=== PATIENT | female | born 1985 | race Caucasian/White ===

== ENCOUNTER 2017-11-05 18:39 | Emergency (ER) | payer MEDICAID, SELFPAY | END 2017-11-05 20:03 | disposition home or self-care (01) | LOC: ERS 18:39 | DX: H10.9 Unspecified conjunctivitis (principal); F41.9 Anxiety disorder, unspecified; Z79.899 Other long term (current) drug therapy | CPT/HCPCS: 99283 ==

== ENCOUNTER 2017-11-09 09:57 | Outpatient (CLI) | payer MEDICAID | END 2017-11-09 09:58 | disposition home or self-care (01) | LOC: BICMAMMO 09:57 | PROVIDERS: ATTEND Physician Assistant | DX: Z12.31 Encounter for screening mammogram for malignant neoplasm of breast (principal); N63.20 Unspecified lump in the left breast, unspecified quadrant | CPT/HCPCS: 77066; G0279 ==

== ENCOUNTER 2018-07-17 15:57 | Emergency (ER) | payer MEDICAID, SELFPAY | END 2018-07-17 16:58 | disposition home or self-care (01) | LOC: ERS 15:57 | DX: J06.9 Acute upper respiratory infection, unspecified (principal); H65.92 Unspecified nonsuppurative otitis media, left ear; F41.9 Anxiety disorder, unspecified; F32.9 Major depressive disorder, single episode, unspecified | CPT/HCPCS: 99283 ==

== ENCOUNTER 2019-02-07 20:50 | Emergency (ER) | payer SELFPAY ==
[2019-02-07 21:22] LABS: Bilirubin Negative (Negative); Blood, Urine 2+ (Negative); Clarity Turbid (Clear); Glucose, Urine (Dipstick) Normal (Negative); Leukocyte 250 Leu/uL (Negative); Nitrite Negative (Negative); Protein, Urine (Dipstick) 20 mg/dL (Neg-Trace); RBC/HPF 0-3 HPF (0-3); Urobilinogen Normal mg/dL (Less than 2)
[2019-02-07 21:23] LABS: Bacteria/HPF 1+ HPF (None Seen)
[2019-02-07] MEDS ORDERED: Ketorolac Tromethamine 30 MG/ML VIAL ONE (21:49)
== END 2019-02-07 22:00 | disposition home or self-care (01) ==
LOC: ERS 20:50
DX: N39.0 Urinary tract infection, site not specified (principal); M54.5 Low back pain; F41.9 Anxiety disorder, unspecified; F32.9 Major depressive disorder, single episode, unspecified; Z79.899 Other long term (current) drug therapy
CPT/HCPCS: 81003; 81015; 87086; 96372; 99283; J1885

== ENCOUNTER 2019-06-11 14:04 | Emergency (ER) | payer SELFPAY ==
--- NOTE | 2019-06-17 06:31 | PQF ---
[facility] POST DISCHARGE CLINICAL DOCUMENTATION IMPROVEMENT CLARIFICATION FORM l Todays Date: 06/15/2019 l Patients Name Lacy Marques l l Admit Date 06/11/2019 l Disch Date 06/11/2019 Padder Cushion Name Fiormarley Fern Email: [email or web address] Cell: [phone] To be completed by Padder Cushion: Present Clinical Indicators - Signs / Symptoms Results and Location in Medical Record [ ] Documentation of: [ ] [ ] Documentation of: [ ] [ ] Documentation of: [ ] [ ] Documentation of: [ ] [ ] Risks [ ] [ ] [ ] Treatment [x] Bronchitis Query for specificity of acute or chronic Bronchitis [ ] [ ] To be completed by Physician: Dr. Emma DO, Chance The documentation in this patients record requires clarification to ensure coding compliance and accuracy. Check the appropriate box and include in your discharge summary. [ ] [ ] [ ] [ ] Please check this box if this does not apply to this patient [ ] Unable to determine [ ] Other diagnosis: Review the following information and exercise your independent professional judgment in responding to the clarification. Based upon the clinical findings, risk factors, and treatment, please clarify if you are treating one of the above probable or suspected diagnoses. Physician Signature: Date Time MTDD
== END 2019-06-11 16:28 | disposition home or self-care (01) ==
LOC: ERS 14:04
DX: J40 Bronchitis, not specified as acute or chronic (principal); F41.9 Anxiety disorder, unspecified; F32.9 Major depressive disorder, single episode, unspecified; Z79.899 Other long term (current) drug therapy; Z79.891 Long term (current) use of opiate analgesic
CPT/HCPCS: 99283

== ENCOUNTER 2020-12-16 19:15 | Emergency (ER) | payer SELFPAY ==
[2020-12-16 22:00] LABS: Bilirubin Negative (Negative); Blood, Urine Negative (Negative); Glucose, Urine (Dipstick) Negative (Negative); Ketone, Urine Negative (Negative); Leukocyte Negative (Negative); Nitrite Negative (Negative); Protein, Urine (Dipstick) Negative (Neg-Trace); Specific Gravity, Urine 1.025 (1.005-1.030); Urobilinogen 0.2 mg/dL (Less than 2)
[2020-12-16 22:01] LABS: Clarity Clear (Clear)
[2020-12-17 14:01] LABS: SARS-CoV-2 PCR by NAA Not Detected (NotDetected)
== END 2020-12-16 22:37 | disposition home or self-care (01) ==
LOC: ERS 19:15
DX: J02.9 Acute pharyngitis, unspecified (principal); Z20.822 Contact with and (suspected) exposure to COVID-19
CPT/HCPCS: 71046; 81003; 93005; U0003; U0005

== ENCOUNTER 2021-01-02 12:10 | Emergency (ER) | payer SELFPAY | END 2021-01-02 14:10 | disposition home or self-care (01) | LOC: ERS 12:10 | DX: M79.671 Pain in right foot (principal); F17.210 Nicotine dependence, cigarettes, uncomplicated ==